=== PATIENT | female | born 1970 | race Two or more races ===

== ENCOUNTER 2025-04-17 06:09 | Day surgery (SDC) | payer BC ==
[2025-04-16 11:38] VITALS: BMI 27.4
[2025-04-17] MEDS ORDERED: IBUPROFEN 400 MG TABLET (FP) PO PRN (08:40)
[2025-04-17] MEDS ORDERED: ACETAMINOPHEN 325 MG TABLET (FP) PO PRN (08:40)
[2025-04-17] MEDS ORDERED: LIDOCAINE HCL/PF 2% SDV 5ML VIAL ONE (10:38)
[2025-04-17] MEDS ORDERED: MIDAZOLAM HCL 2 MG/2 ML SINGLE DOSE VIAL ONE (10:38)
[2025-04-17] MEDS ORDERED: PROPOFOL 20 ML ONE (11:20)
[2025-04-17 12:08] VITALS: RESP 16
[2025-04-17] MEDS ORDERED: LACTATED RINGERS SOLUTION 1,000 ML IV SCH (12:30)
[2025-04-17 14:51] VITALS: BP 110/76; PULSE 78; TEMP 98
== END 2025-04-17 14:35 | disposition home or self-care (01) ==
LOC: JASU-SURG 06:09
PROVIDERS: ATTEND Obstetrics & Gynecology
PROC: 0UDB8ZX Extraction of Endometrium, Via Natural or Artificial Opening Endoscopic, Diagnostic (ICD-10-PCS; principal; 2025-04-17 10:00)
DX: N84.0 Polyp of corpus uteri (principal)
CPT/HCPCS: 94760